=== PATIENT | male | born 2000 | race African-American/Black ===

== ENCOUNTER 2021-11-28 09:38 | Emergency (ER) | payer OTHER ==
[~2021-11-28] VITALS: Ht 203.2 cm; Wt 100.0 kg
[2021-11-28 11:00] VITALS: BP 147/67
[2021-11-28] MEDS ORDERED: LIDO700A21 TP (11:24)
--- NOTE | 2021-11-28 11:25 | PHYS DOC ---
Past Medical History Additional Past Medical Histor: ULCERTIVE COLITIS Past Surgical History: Other Additional Past Surgical Histo: LEFT ANKLE SURGERY General Adult EDM: Chief Complaint: BACK PAIN OR INJURY HPI: HPI: Patient is a 21 year old male who presents with 1 week of left low back pain with sciatic sharp shooting pain that goes into the buttock. He states that he does play sports but he has not played sports in the last week due to pain. He lives in [place] and is going to go back home to [place]. States his mother is a pharmacist and told him to start taking Tylenol and NSAIDs of which she has been doing. He states he has ulcerative colitis and had leftover prednisone so he had taken some for about 5 days now. He states his mother also wrote him for some muscle relaxers which she has been taking. He denies loss of bowel bladder, focal weakness, numbness and tingling, injury. He states he has had this before in the past but only lasted for 3 days and this is lasted longer. Only states that the pain is only when he goes from sitting to standing. Review of Systems: Review of Systems: Constitutional: Denies fever or chills. [] Eyes: Denies change in visual acuity. [] HENT: Denies nasal congestion or sore throat. [] Respiratory: Denies cough or shortness of breath. [] Cardiovascular: Denies chest pain or edema. [] GI: Denies abdominal pain, nausea, vomiting, bloody stools or diarrhea. [] : Denies dysuria. [] Musculoskeletal: + Left lower back pain, + left buttock or denies joint pain. [] Integument: Denies rash. [] Neurologic: Denies headache, focal weakness or sensory changes. [] Endocrine: Denies polyuria or polydipsia. [] Lymphatic: Denies swollen glands. [] Psychiatric: Denies depression or anxiety. [] Heart Score: C/O Chest Pain: No Allergies: Allergies: Allergies Coded Allergies Type Severity Reaction Last Updated Verified No Known Drug Allergies 11/28/21 No Physical Exam: PE: Constitutional: Well developed, well nourished, no acute distress, non-toxic appearance. [] HENT: Normocephalic, atraumatic, bilateral external ears normal, oropharynx moist, no oral exudates, nose normal. [] Eyes: PERRLA, EOMI, conjunctiva normal, no discharge. [] Neck: Normal range of motion, no tenderness, supple, no stridor. [] Cardiovascular:Heart rate regular rhythm, no murmur [] Lungs & Thorax: Bilateral breath sounds clear to auscultation [] Abdomen: Bowel sounds normal, soft, no tenderness, no masses, no pulsatile masses. [] Skin: Warm, dry, no erythema, no rash. [] Back: No tenderness, no CVA tenderness. [] Extremities: No tenderness, no cyanosis, no clubbing, ROM intact, no edema. [] Neurologic: Alert and oriented X 3, normal motor function, normal sensory function, no focal deficits noted. [] Psychologic: Affect normal, judgement normal, mood normal. [] Normal physical exam Current Patient Data: Vital Signs: Vital Signs Date Time Temp Pulse Resp B/P (MAP) Pulse Ox O2 Delivery O2 Flow Rate FiO2 11/28/21 11:00 97.6 77 18 147/67 (93) 98 Room Air 97.6 EKG: EKG: [] Radiology/Procedures: Radiology/Procedures: [] Course & Med Decision Making: Course & Med Decision Making Pertinent Labs and Imaging studies reviewed. (See chart for details) See HPI. Alert and oriented x4. Ambulatory with steady gait. Skin pink warm and dry. No saddle anesthesia. No focal bony spinal tenderness. No focal weakness. Full chain person and strengths. No swelling or signs of trauma. Patient is given a prescription for lidocaine and is told to continue taking NSAIDs and muscle relaxers. No extremity edema. Pedal pulse strong and present. Cap refill less than 2 seconds. [] Dragon Disclaimer: Trae Disclaimer: This electronic medical record was generated, in whole or in part, using a voice recognition dictation system. Departure Departure Impression: Primary Impression: Back pain Qualified Codes: M54.42 - Lumbago with sciatica, left side Additional Impression: Sciatica Qualified Codes: M54.32 - Sciatica, left side Disposition: 01 HOME / SELF CARE / HOMELESS Condition: STABLE Referrals: NON,STAFF (PCP) Patient Instructions: Sciatica with [facility] Additional Instructions: Continue using NSAIDs, heating pad and rest. Remember not to put a heating pad over any lidocaine patch as a will scold your skin. Drink plenty of fluids to stay hydrated. Follow-up with your primary care physician as soon as possible. Scripts Lidocaine (Lidocaine PATCH ) 1 Each Adh..patch 1 EACH TP DAILY for FOR LOCAL PAIN, #5 PATCH REMOVE AFTER 12 HOURS Prov: NAN VAZQUEZ APRN 11/28/21 NAN VAZQUEZ APRN November 28, 2021 11:25
== END 2021-11-28 11:37 | disposition home or self-care (01) ==
LOC: ER 09:38
DX: M54.42 Lumbago with sciatica, left side (principal)
CPT/HCPCS: 99282